=== PATIENT | female | born 1970 | race Caucasian/White ===

== ENCOUNTER → 2016-09-03 | Outpatient (CLI) | payer BC | LOC: GMAB 17:41 | PROVIDERS: ATTEND Family Medicine | DX: M79.7 Fibromyalgia (principal) ==

== ENCOUNTER → 2016-09-10 | Outpatient (CLI) | payer BC | END | disposition home or self-care (01) | LOC: GMAB 16:42 | PROVIDERS: ATTEND Family Medicine | DX: D50.8 Other iron deficiency anemias (principal); E53.8 Deficiency of other specified B group vitamins ==

== ENCOUNTER → 2017-01-23 | Outpatient (CLI) | payer BC | END | disposition home or self-care (01) | LOC: GMAB 14:25 | PROVIDERS: ATTEND Family Medicine | DX: N39.0 Urinary tract infection, site not specified (principal) ==

== ENCOUNTER 2018-04-14 21:20 | Emergency (ER) | payer BC ==
[2018-04-14] MEDS ORDERED: KETOROLAC TROMETHAMINE INJ 30 MG/ML VIAL IM ONE (21:56)
[2018-04-14] MEDS ORDERED: HYDROcodone 7.5MG/APAP 325MG 1 EA TAB PO ONE (21:56)
[2018-04-14] MEDS ORDERED: MORPHINE SULFATE INJ 10 MG/ML VIAL IM ONE (22:36)
--- NOTE | 2018-04-14 22:38 | CT ---
CLINICAL HISTORY: uti and possible rt kidney stone COMPARISON: None. 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 FINDINGS: Lower lungs are clear. Abdomen: The liver is normal in appearance. There is no biliary dilatation. Gallbladder is normal in appearance. Stomach is distended. The pancreas and spleen are normal in appearance. Adrenal glands are normal. There is a questionable punctate lower pole left renal calculus. There are two tiny lower pole right renal calculi measuring up to 1 mm. Abdominal aorta is normal in course and caliber without aneurysm. There is no free air. There is no retroperitoneal adenopathy. Pelvis: There is no bowel obstruction. Urinary bladder is unremarkable. There is no free fluid. Uterus is not well seen. Appendix is not seen. Skeleton: There are no acute osseous findings. No suspicious bony lesions. IMPRESSION: Mild right nephrolithiasis without hydronephrosis. Electronically signed by: Cali Ambriz MD 04/14/2018 10:35 PM GAME TECHNICIAN
[2018-04-14] MEDS ORDERED: cefTRIAXone SODIUM 1 GM in SODIUM CHL 0.9% 50ML MIN-BAG+ 50 ML IVPB ONE (22:45)
[2018-04-14] MEDS ORDERED: SODIUM CHLORIDE 0.9% 1000ML 1,000 ML IVS ONE (22:45)
[2018-04-14] MEDS ORDERED: SODIUM CHL 0.9% 50ML MIN-BAG+ 50 ML IVPB ONE (23:26)
[2018-04-14] MEDS ORDERED: cefTRIAXone SODIUM 1 GM VIAL ONE (23:26)
[2018-04-14] MEDS ORDERED: LIDOCAINE 1% 2 ML VIAL INJ ONE (23:26)
--- NOTE | 2018-04-14 23:43 | ED.PDOC ---
History of Present Illness - General Chief Complaint: Problem Stated Complaint: low back pain, urinary frequency Time Seen by Provider: 04/14/18 21:53 Source: patient Exam Limitations: no limitations - History of Present Illness Initial Comments: The patient is a 48-year-old female presenting to emergency room secondary to severe right flank pain starting around noon today. The patient has had symptoms of urinary tract infection for the past few days. She does get frequent urinary tract infections. No fevers. She has had some nausea but no vomiting. She does have chronic constipation issues. No real right-sided abdominal pain. She does have mild suprapubic discomfort. Timing/Duration: unsure Severity: moderate Improving Factors: nothing Worsening Factors: nothing Associated Symptoms: nausea/vomiting Allergies/Adverse Reactions: Allergies NO KNOWN ALLERGY Allergy (Verified 06/09/15 13:57) Home Medications: Ambulatory Orders Olmesartan Medoxomil [Benicar] 20 mg PO DAILY 06/09/15 Topiramate [Topamax] 50 mg PO BID 06/09/15 Baclofen 10 mg PO TID 04/14/18 Buspirone HCl 15 mg PO BID 04/14/18 Ciprofloxacin [Cipro] 500 mg PO BID #14 tab 04/14/18 Estradiol 2 mg PO DAILY 04/14/18 Linaclotide [Linzess] 290 mcg PO DAILY 04/14/18 Milnacipran HCl [Savella] 50 mg PO BID 04/14/18 Review of Systems - Review of Systems Constitutional: States: no symptoms reported EENTM: States: no symptoms reported Respiratory: States: no symptoms reported Cardiology: States: no symptoms reported Gastrointestinal/Abdominal: States: see HPI Genitourinary: States: no symptoms reported Musculoskeletal: States: back pain Skin: States: no symptoms reported Neurological: States: no symptoms reported Endocrine: States: no symptoms reported All other Systems: No Change from Baseline Past Medical History (General) - Patient Medical History Hx of COPD: No Hx Hypertension: Yes Hx Diabetes: No Surgical History: appendectomy, Hysterectomy - Vaccination History Hx Tetanus, Diphtheria Vaccination: Yes Hx Influenza Vaccination: Yes Hx Pneumococcal Vaccination: Yes - Social History Hx Tobacco Use: No Hx Alcohol Use: No Hx Substance Use: No Hx Depression: No - Female History Patient : No - Triage Comment ED Triage Comment: States history of "kidney problems" Family Medical History - Family History Mother Family History: Unknown Physical Exam - Physical Exam General Appearance: Alert, Obvious distress Eye Exam: bilateral normal Ears, Nose, Throat: hearing grossly normal, normal ENT inspection, normal pharynx Neck: full range of motion, supple Respiratory: lungs clear, normal breath sounds, no respiratory distress, no accessory muscle use Cardiovascular/Chest: normal peripheral pulses, regular rate, rhythm, no edema Peripheral Pulses: radial,right: 2+, radial,left: 2+, dorsalis pedis,right: 2+, dorsalis pedis,left: 2+ Gastrointestinal/Abdominal: non tender, soft Rectal Exam: deferred Back Exam: no vertebral tenderness, CVA tenderness (R) Extremity: normal range of motion, non-tender, normal inspection, no pedal edema 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 Source of the right flank pain is not entirely certain. She does have significant constipation and does need to get cleaned out. It is possible the patient may have passed a small kidney stone earlier. She needs to increase her fluid intake as she is showing some mild dehydration on lab work. She'll be written for ciprofloxacin for 7 days for urinary tract infection. ER warnings were given for a significant worsening. Follow up with primary care doctor next week for repeat urinalysis. - Results/Orders Results/Orders: Laboratory Tests 04/14/18 04/14/18 04/14/18 21:46 21:57 23:00 WBC 6.0 RBC 3.85 L Hgb 12.1 Hct 35.6 L MCV 92.5 MCH 31.3 H MCHC 33.9 RDW 13.3 Plt Count 310 MPV 8.8 Absolute Neuts (auto) 3.10 Absolute Lymphs (auto) 2.20 Absolute Monos (auto) 0.50 Absolute Eos (auto) 0.20 Absolute Basos (auto) 0.00 Neutrophils % 50.9 Lymphocytes % 37.2 Monocytes % 8.6 Eosinophils % 2.8 Basophils % 0.5 Sodium Potassium Chloride Carbon Dioxide Anion Gap BUN Creatinine BUN/Creatinine Ratio Random Glucose Serum Osmolality Lactic Acid Calcium Magnesium Total Bilirubin AST ALT Alkaline Phosphatase Serum Total Protein Albumin Globulin Albumin/Globulin Ratio Amylase Lipase Urine Color Yellow Urine Appearance Clear Urine pH 5.5 Ur Specific [place] 1.025 Urine Protein Negative Urine Glucose (UA) Negative Urine Ketones Negative Urine Blood Trace-intact H Urine Nitrite Negative Urine Bilirubin Negative Urine Urobilinogen 0.2 Ur Leukocyte Esterase Moderate H Urine RBC 1-3 Urine WBC 5-10 H Ur Epithelial Cells 20-30 Urine Bacteria 1+ Urine HCG, Qual Negative 04/14/18 04/14/18 23:00 23:00 WBC RBC Hgb Hct MCV MCH MCHC RDW Plt Count MPV Absolute Neuts (auto) Absolute Lymphs (auto) Absolute Monos (auto) Absolute Eos (auto) Absolute Basos (auto) Neutrophils % Lymphocytes % Monocytes % Eosinophils % Basophils % Sodium 138 Potassium 4.1 Chloride 109 Carbon Dioxide 20 L Anion Gap 13.1 BUN 22 H Creatinine 1.06 BUN/Creatinine Ratio 20.8 H Random Glucose 111 H Serum Osmolality 279.7 Lactic Acid 1.0 Calcium 9.2 Magnesium 2.2 Total Bilirubin 0.3 AST 20 ALT 14 Alkaline Phosphatase 101 Serum Total Protein 6.8 Albumin 3.5 Globulin 3.3 Albumin/Globulin Ratio 1.1 Amylase 72 Lipase 39 Urine Color Urine Appearance Urine pH Ur Specific [place] Urine Protein Urine Glucose (UA) Urine Ketones Urine Blood Urine Nitrite Urine Bilirubin Urine Urobilinogen Ur Leukocyte Esterase Urine RBC Urine WBC Ur Epithelial Cells Urine Bacteria Urine HCG, Qual CT scan of abdomen and pelvis failed to show any obstructing renal stones. No evidence of any appendicitis. No evidence of other acute pathology. Departure - Departure Clinical Impression: Cystitis, Right flank pain Constipation Qualifiers: Constipation type: unspecified constipation type Qualified Code(s): K59.00 - Constipation, unspecified Disposition: Discharge to Home or Self Care Condition: Fair Departure Forms: ED Discharge - Pt. Copy, Patient Portal Self Enrollment Instructions: DI for Urinary Tract Infection (UTI), Constipation, Adult (DC) Diet: regular diet - High-fiber Activity: increase activity as tolerated Referrals: Solitario Hernandez MD [Primary Care Provider] - 1-2 Weeks Prescriptions: Ciprofloxacin [Cipro] 500 mg PO BID #14 tab Home Medications: Ambulatory Orders Olmesartan Medoxomil [Benicar] 20 mg PO DAILY 06/09/15 Topiramate [Topamax] 50 mg PO BID 06/09/15 Baclofen 10 mg PO TID 04/14/18 Buspirone HCl 15 mg PO BID 04/14/18 Ciprofloxacin [Cipro] 500 mg PO BID #14 tab 04/14/18 Estradiol 2 mg PO DAILY 04/14/18 Linaclotide [Linzess] 290 mcg PO DAILY 04/14/18 Milnacipran HCl [Savella] 50 mg PO BID 04/14/18 Additional Instructions: the patient's 48-year-old female presenting to the emergency room with what appears to be a urinary tract action as well as right flank pain. Source of the right flank pain is not entirely certain. She does have significant constipation and does need to get cleaned out. It is possible the patient may have passed a small kidney stone earlier. She needs to increase her fluid intake as she is showing some mild dehydration on lab work. She'll be written for ciprofloxacin for 7 days for urinary tract infection. ER warnings were given for a significant worsening. Follow up with primary care doctor next week for repeat urinalysis.
[2018-04-14] MEDS ORDERED: cefTRIAXone SODIUM 1 GM VIAL IM ONE (23:55)
[2018-04-15 00:04] VITALS: BP 154/90; TEMP 98; O2SAT 98
== END 2018-04-15 00:04 | disposition home or self-care (01) ==
LOC: ER 21:20
DX: N30.90 Cystitis, unspecified without hematuria (principal); K59.00 Constipation, unspecified; R10.9 Unspecified abdominal pain; I10 Essential (primary) hypertension; Z90.49 Acquired absence of other specified parts of digestive tract; Z79.899 Other long term (current) drug therapy
CPT/HCPCS: 36415; 74176; 80053; 81025; 82150; 83605; 83690; 83735; 85025; 87086; J0696; J1885; J2270; J7050

== ENCOUNTER 2018-04-17 07:29 | Emergency (ER) | payer BC ==
[2018-04-17] MEDS ORDERED: IBUPROFEN 200 MG TAB PO ONE (07:55)
[2018-04-17 08:34] VITALS: TEMP 97.2
--- NOTE | 2018-04-17 08:46 | ED.PDOC ---
History of Present Illness - General Chief Complaint: General Stated Complaint: cough,runny nose,chest serna Time Seen by Provider: 04/17/18 07:45 Source: patient Exam Limitations: no limitations - History of Present Illness Initial Comments: the patient is a 48-year-old female presenting to the emergency room secondary to cough and congestion with a mild sore throat for the last 2 days. She is currently undergoing treatment for a urinary tract infection. She does have mild body aches. She reports low-grade fevers. Timing/Duration: 24 hours Severity: mild Improving Factors: nothing Worsening Factors: nothing Associated Symptoms: cough, fever/chills, malaise Allergies/Adverse Reactions: Allergies NO KNOWN ALLERGY Allergy (Verified 06/09/15 13:57) Home Medications: Ambulatory Orders Olmesartan Medoxomil [Benicar] 20 mg PO DAILY 06/09/15 Topiramate [Topamax] 50 mg PO BID 06/09/15 Baclofen 10 mg PO TID 04/14/18 Buspirone HCl 15 mg PO BID 04/14/18 Ciprofloxacin [Cipro] 500 mg PO BID #14 tab 04/14/18 Estradiol 2 mg PO DAILY 04/14/18 Linaclotide [Linzess] 290 mcg PO DAILY 04/14/18 Milnacipran HCl [Savella] 50 mg PO BID 04/14/18 Review of Systems - Review of Systems Constitutional: States: fever, malaise EENTM: States: nose congestion, throat pain Respiratory: States: cough Cardiology: States: no symptoms reported Gastrointestinal/Abdominal: States: no symptoms reported Genitourinary: States: no symptoms reported Musculoskeletal: States: see HPI - chronic issues Skin: States: no symptoms reported Neurological: States: see HPI - chronic issues Endocrine: States: no symptoms reported All other Systems: No Change from Baseline Past Medical History (General) - Patient Medical History Hx Stroke: No Hx of COPD: No Hx Congestive Heart Failure: No Hx Hypertension: Yes Hx Diabetes: No Surgical History: appendectomy, tonsillectomy, Hysterectomy - Vaccination History Hx Tetanus, Diphtheria Vaccination: Yes Hx Influenza Vaccination: Yes - 10/2017 Hx Pneumococcal Vaccination: Yes - Social History Hx Tobacco Use: No Hx Alcohol Use: No Hx Substance Use: No Hx Depression: No - Female History Patient : No Family Medical History - Family History Mother Family History: Unknown Physical Exam - Physical Exam General Appearance: Alert, Comfortable, No apparent distress Eye Exam: bilateral normal Ears, Nose, Throat: hearing grossly normal, nasal congestion, pharyngeal erythema Neck: full range of motion, supple Respiratory: lungs clear, normal breath sounds, no respiratory distress, no accessory muscle use Cardiovascular/Chest: normal peripheral pulses, regular rate, rhythm, no edema Peripheral Pulses: radial,right: 2+, radial,left: 2+ Rectal Exam: deferred Back Exam: no CVA tenderness Extremity: non-tender, no pedal edema, normal capillary refill Neurologic: member of [employer] II-XII nml as tested, alert, normal mood/affect, oriented x 3 Skin Exam: normal color Comments: Vital Signs - 24 hr 04/17/18 04/17/18 04/17/18 07:40 07:47 08:30 Temperature 97.3 F L 97.2 F L Pulse Rate [ 82 88 Left Brachial] Respiratory 20 20 18 Rate Blood Pressure 165/104 145/95 [Left Arm] O2 Sat by Pulse 99 98 Oximetry Progress - Progress Progress: 04/17/18 08:45 the patient's a 48-year-old female presenting to the emergency room se condary to what appears to be a viral upper respiratory tract infection or rather a common cold. She has tested negative for influenza. No hypoxia. Vital signs are stable. She needs to keep herself well hydrated. Motrin can be used every 8 hours to help reduce symptoms along with some [id number] Mucinex and a humidifier. ER warnings were given. Symptoms will likely last close to a week. Keep routine follow-up with primary care doctor. Continue treatment for urinary tract infection. Departure - Departure Clinical Impression: Viral upper respiratory infection Disposition: Discharge to Home or Self Care Condition: Fair Departure Forms: ED Discharge - Pt. Copy, Patient Portal Self Enrollment Instructions: Viral Upper Respiratory Infection, Adult (DC), Cough, Runny Nose, and the Common Cold (DC) Diet: regular diet Activity: increase activity as tolerated Referrals: SOO OCASIO MD [Primary Care Provider] - 1-2 Weeks Home Medications: Ambulatory Orders Olmesartan Medoxomil [Benicar] 20 mg PO DAILY 06/09/15 Topiramate [Topamax] 50 mg PO BID 06/09/15 Baclofen 10 mg PO TID 04/14/18 Buspirone HCl 15 mg PO BID 04/14/18 Ciprofloxacin [Cipro] 500 mg PO BID #14 tab 04/14/18 Estradiol 2 mg PO DAILY 04/14/18 Linaclotide [Linzess] 290 mcg PO DAILY 04/14/18 Milnacipran HCl [Savella] 50 mg PO BID 04/14/18 Additional Instructions: the patient's a 48-year-old female presenting to the emergency room secondary to what appears to be a viral upper respiratory tract infection or rather a common cold. She has tested negative for influenza. No hypoxia. Vital signs are stable. She needs to keep herself well hydrated. Motrin can be used every 8 hours to help reduce symptoms along with some [id number] Mucinex and a humidifier. ER warnings were given. Symptoms will likely last close to a week. Keep routine follow-up with primary care doctor. Continue treatment for urinary tract infection.
[2018-04-17 08:53] VITALS: BP 149/95; O2SAT 99
== END 2018-04-17 08:53 | disposition home or self-care (01) ==
LOC: ER 07:29
DX: J06.9 Acute upper respiratory infection, unspecified (principal); I10 Essential (primary) hypertension; Z79.899 Other long term (current) drug therapy

== ENCOUNTER → 2018-05-22 | Outpatient (CLI) | payer BC ==
--- NOTE | 2018-05-23 09:41 | MRI ---
EXAM DESCRIPTION: Lumbar Spine w/o Contrast CLINICAL HISTORY: LOW BACK PAIN COMPARISON: X-ray May 13, 2018 TECHNIQUE: Multiplanar, multisequence MRI of the lumbar spine was performed without contrast. FINDINGS: Lumbar vertebral body heights are maintained. Normal lumbar lordosis is seen. Conus medullaris terminates at T12-L1 and is unremarkable. Visualized intra-abdominal retroperitoneal structures show no acute findings. L1-2 No significant findings. L2-3 No significant findings. L3-4 No significant findings. L4-5 Mild bilateral facet hypertrophic and degenerative changes are seen with small facet joint effusion. No spinal canal stenosis or foraminal encroachment. L5-S1 Desiccation of the disc space and mild diffuse disc space narrowing is seen. Mild bilateral facet hypertrophic and degenerative changes are seen. No spinal canal stenosis or significant foraminal encroachment. IMPRESSION: [id number] disc disease at L5-S1 is seen with mild facet arthropathy from L4 through S1. No high-grade spinal canal stenosis or nerve root impingement is seen in the lumbar spine. Electronically signed by: Carter Mcdonough MD 05/23/2018 9:38 AM CDT
== END ==
LOC: MRI 09:58
PROVIDERS: ATTEND Family Medicine
DX: M51.37 Other intervertebral disc degeneration, lumbosacral region (principal)

== ENCOUNTER → 2019-09-10 | Outpatient (CLI) | payer BC | LOC: GMAE 10:48 | PROVIDERS: ATTEND Family Medicine | DX: Z00.00 Encounter for general adult medical examination without abnormal findings (principal) ==